=== PATIENT | male | born 1955 | race Caucasian/White ===

== ENCOUNTER 2017-01-29 12:44 | Emergency (ER) | payer BC, OTHER ==
[~2017-01-29] VITALS: Ht 180.3 cm; Wt 85.3 kg
[2017-01-29] MEDS ORDERED: ASPI325T28 PO (12:58)
[2017-01-29] MEDS ORDERED: FLEC50TA PO (12:58)
[2017-01-29] MEDS ORDERED: GLUC500C5 PO (12:58)
[2017-01-29] MEDS ORDERED: TETRACAINE 0.5% OPHTH SOLN 4ML OD ONE (13:30)
[2017-01-29] MEDS ORDERED: PHENYLEPHRINE 2.5% OPHTH SOL 2ML OU ONE (13:45)
[2017-01-29] MEDS ORDERED: TROPICAMIDE 0.5% OPHTH SOLN 15 ML OU ONE (13:45)
[2017-01-29 15:17] VITALS: BP 125/74
--- NOTE | 2017-02-01 00:40 | ER ---
DATE: 01/29/2017 CHIEF COMPLAINT: Floaters. HISTORY OF PRESENT ILLNESS: This is a 61-year-old male with a 1-day history of floaters in the right eye. Patient notes that they started yesterday evening with dark spots and gradually progressed into a cobweb-type configuration. There are no associated flashes of light or change in visual acuity. He denies any prior trauma. Patient was with his in the examination room at the time of taking history and physical exam. PAST MEDICAL HISTORY: intermittent atrial fibrillation. PAST OCULAR HISTORY: Spectacle lens use. No ocular drops. No prior ocular surgery. ALLERGIES: None. REVIEW OF SYSTEMS: Noncontributory. Visual acuity uncorrected 20/25 both eyes (OU). Visual acuity corrected is 20/25 right eye (OD) and 20/25 left eye (OS). Intraocular pressure is soft to palpation bilaterally. Extraocular muscles are full bilaterally. Confrontation visual levin are full OU. Slit lamp examination: Lids, lashes and adnexa are within normal limits. There is no ptosis or lid retraction. Conjunctivae and sclerae are white and quiet OU. Lens is 2+. Nuclear sclerosis OU. Cornea is clear OU and iris is flat. There is no rubeosis OU. Dilated fundus examination revealed a cup-to-disc ratio of 0.1. Disc margins were sharp, pink, and flat OU. Macula was flat OU. Vessels were within normal limits OU. Vitreous examination of the right eye revealed a vitreous hemorrhage to the right eye with no associated tears, breaks, or holes. Scleral depression was not performed. OS was within normal limits. ASSESSMENT AND PLAN: 1. Vitreous degeneration of the right eye without associated tear, break, or hole. Recommend followup with [facility] on Monday in [place] for repeat dilated examination and scleral depression to rule out presence of retinal hole or tear. Patient was instructed to call my office or return to the emergency room as soon as possible if there were any changes in symptoms, such as increased floaters, flashes of light, or a dark curtain that entered his vision. 2. Nuclear sclerosis bilaterally. - Monitor 3. Refractive error. - Spectacle correction. MTDD
== END 2017-01-29 15:21 | disposition home or self-care (01) ==
LOC: M ED 14:16
DX: H43.89 Other disorders of vitreous body (principal); H53.8 Other visual disturbances; I48.91 Unspecified atrial fibrillation; Z79.82 Long term (current) use of aspirin; Z79.899 Other long term (current) drug therapy

== ENCOUNTER → 2017-08-04 | Outpatient (CLI) | payer BC, OTHER ==
[~2017-08-04] MED LIST: ASPI325T28 PO; FLEC50TA PO; GLUC500C5 PO
--- NOTE | 2017-08-04 14:47 | REP ---
CT ABDOMEN AND PELVIS WITHOUT IV OR ORAL CONTRAST: HISTORY: Low back pain. Question intra-abdominal pathology. No comparison study. CT FINDINGS: Preliminary digital flight nurse radiograph demonstrates moderate stool in the colon. No small bowel dilation is seen. The patient is status post right hip arthroplasty. The lung bases are clear. The liver and the spleen are normal in size and homogeneous in texture on pre- and postcontrast images. No adrenal lesion is seen. The gallbladder is small and contracted but otherwise unremarkable. No pancreatic abnormalities observed. There is a low-density area consistent with a cyst in the posterior cortex of the left kidney measuring 1.8 cm in diameter. No hydronephrosis or calculus is seen. Normal caliber aorta is noted. Small and large intestinal bowel loops are unremarkable on CT images. The appendix is retrocecal and high in position near the lower pole of the right kidney. No abdominal wall defect is seen. No evidence of free air or intraperitoneal fluid collection. No bladder calculus or ureteral calculus is observed. IMPRESSION: 1.8 cm cyst left kidney, moderate colonic stool. Otherwise negative. Signed by Carlos Quinones MD 08/04/2017 04:00 P
== END ==
LOC: M RAD 14:16
PROVIDERS: ATTEND Orthopaedic Surgery Orthopaedic Surgery of the Spine
DX: N28.1 Cyst of kidney, acquired (principal)

== ENCOUNTER → 2017-08-24 | Outpatient (CLI) | payer OTHER | LOC: M PAIN 13:00 | DX: G89.29 Other chronic pain (principal); M54.5 Low back pain; M51.16 Intervertebral disc disorders with radiculopathy, lumbar region; M51.17 Intervertebral disc disorders with radiculopathy, lumbosacral region; I48.91 Unspecified atrial fibrillation; Z79.82 Long term (current) use of aspirin; Z79.899 Other long term (current) drug therapy | CPT/HCPCS: G0463 ==

== ENCOUNTER → 2017-09-14 | Outpatient (CLI) | payer OTHER | LOC: M PAIN 11:00 | DX: G89.29 Other chronic pain (principal); M54.5 Low back pain; M51.16 Intervertebral disc disorders with radiculopathy, lumbar region; M51.17 Intervertebral disc disorders with radiculopathy, lumbosacral region; Z79.82 Long term (current) use of aspirin; Z79.899 Other long term (current) drug therapy; Z86.79 Personal history of other diseases of the circulatory system | CPT/HCPCS: G0463 ==

== ENCOUNTER 2019-01-29 09:29 | Day surgery (SDC) | payer BC, OTHER ==
[~2019-01-29] VITALS: Ht 180.3 cm; Wt 82.1 kg
[~2019-01-29 09:29] MED LIST changes: +ASPI-222 PO; -ASPI325T28 PO; +FLEC50HA PO; -FLEC50TA PO; +GLUC1CAP10 PO; +NS 1,000 ML IV ONE
[2019-01-29] MEDS ORDERED: PROPOFOL 200 MG/20 ML VIAL As Ordered ONE (11:58)
[2019-01-29] MEDS ORDERED: LIDOCAINE 2% INJ 100 MG/5 ML SDV (FOR ANES.) As Ordered ONE (12:03)
--- NOTE | 2019-01-29 12:38 | ROOR ---
Patient Name: Jose Juan Ham Procedure Date: 01/29/2019 12:12 PM Date of : 1955 Age: 63 Room: [facility] Gender: Male Note Status: Finalized Procedure: Colonoscopy Indications: High risk colon cancer surveillance: Personal history of colonic polyps, Last colonoscopy: 2007 Providers: Henry Armando MD Referring MD: 1. No Referring Physician 1. No Referring Physician, Admin. Requesting Provider: Medicines: Monitored Anesthesia Care Complications: No immediate complications. Procedure: Pre-Anesthesia Assessment: - Prior to the procedure, a History and Physical was performed, and patient medications and allergies were reviewed. The patient is competent. The risks and benefits of the procedure and the sedation options and risks were discussed with the patient. All questions were answered and informed consent was obtained. Patient identification and proposed procedure were verified by the physician, the nurse and the anesthesiologist in the procedure room. Mental Status Examination: alert and oriented. CV Examination: regular rate and rhythm. Prophylactic Antibiotics: The patient does not require prophylactic antibiotics. Prior Anticoagulants: The patient has taken no previous anticoagulant or antiplatelet agents. ASA Grade Assessment: II - A patient with mild systemic disease. After reviewing the risks and benefits, the patient was deemed in satisfactory condition to undergo the procedure. The anesthesia plan was to use monitored anesthesia care (MAC). Immediately prior to administration of medications, the patient was re-assessed for adequacy to receive sedatives. The heart rate, respiratory rate, oxygen saturations, blood pressure, adequacy of pulmonary ventilation, and response to care were monitored throughout the procedure. The physical status of the patient was re-assessed after the procedure. The Colonoscope was introduced through the anus and advanced to the cecum, identified by appendiceal orifice and ileocecal valve. The colonoscopy was performed without difficulty. The patient tolerated the procedure well. The quality of the bowel preparation was good. Findings: The perianal and digital rectal examinations were normal. Multiple medium-mouthed diverticula were found in the sigmoid colon and descending colon. The exam was otherwise without abnormality. Impression: - Diverticulosis in the sigmoid colon and in the descending colon. - The examination was otherwise normal. - No specimens collected. Recommendation: - Discharge patient to home. - Resume previous diet. - Continue present medications. - Repeat colonoscopy in 10 years for screening purposes. Henry Armando MD Henry Armando MD 01/29/2019 12:38:07 PM Electronically signed by Henry Armando MD Number of Addenda: 0 Note Initiated On: 01/29/2019 12:12 PM Estimated Blood Loss: Estimated blood loss: none.
[2019-01-29 13:06] VITALS: BP 143/89
== END 2019-01-29 13:16 | disposition home or self-care (01) ==
LOC: M OPP 09:29
PROVIDERS: ATTEND Surgery
DX: K57.30 Diverticulosis of large intestine without perforation or abscess without bleeding (principal); Z86.010 Personal history of colon polyps

== ENCOUNTER → 2021-05-11 | Outpatient (CLI) | payer BC, OTHER ==
[~2021-05-11] MED LIST changes: -ASPI-222 PO; +ASPI-527 PO; -NS 1,000 ML IV ONE
[2021-05-11 13:20] LABS: HEMATOCRIT 42.6 % (42.0-52.0); MEAN CORPUSCULAR HEMOGLOBIN 32.3 pg (27.0-33.0); MEAN CORPUSCULAR HGB CONC 32.9 g/dl (32.0-36.5); MEAN CORPUSCULAR VOLUME 98.4 fl (80.0-96.0); PLATELET COUNT, AUTOMATED 184 10^3/uL (150-450); RED BLOOD COUNT 4.33 10^6/uL (4.30-6.10); WHITE BLOOD COUNT 5.2 10^3/uL (4.0-10.0)
[2021-05-11 14:14] LABS: ALBUMIN 3.9 GM/DL (3.2-5.2); ALT/SGPT 13 U/L (12-78); BILIRUBIN,TOTAL 0.6 MG/DL (0.2-1.0); BLOOD UREA NITROGEN 15 MG/DL (7-18); CALCIUM LEVEL 8.6 MG/DL (8.8-10.2); CARBON DIOXIDE LEVEL 31 MEQ/L (21-32); CHLORIDE LEVEL 107 MEQ/L (98-107); CHOLESTEROL LEVEL 164 MG/DL (<200); CHOLESTEROL RISK RATIO 2.603 (<5); CREATININE FOR GFR 0.82 MG/DL (0.70-1.30); GLOMERULAR FILTRATION RATE > 60.0 (>49); GLUCOSE, FASTING 91 MG/DL (70-100); HDL CHOLESTEROL 63 MG/DL (>40); LDL CHOLESTEROL 92 MG/DL (<100); NON-HDL-C 101 MG/DL; POTASSIUM SERUM 4.8 MEQ/L (3.5-5.1); PROSTATIC SPECIFIC AG MONITOR 0.46 NG/ML (< 4.00); SODIUM LEVEL 140 MEQ/L (136-145); THYROID STIMULATING HORMONE 0.779 uIU/ML (0.358-3.740); TOTAL PROTEIN 7.1 GM/DL (6.4-8.2); TRIGLYCERIDES LEVEL 46 MG/DL (<150)
== END ==
LOC: M PLALAB 11:13
PROVIDERS: ATTEND Nurse Practitioner Family
DX: I48.0 Paroxysmal atrial fibrillation (principal)

== ENCOUNTER → 2024-12-10 | Outpatient (CLI) | payer MEDICARE, BC, OTHER ==
[2024-12-10 16:26] LABS: CHOLESTEROL RISK RATIO 2.85 (<5); HDL CHOLESTEROL 61.6 MG/DL (>40); LDL CHOLESTEROL 105.2 MG/DL (<100); NON-HDL-C 114.4 MG/DL; PSA SCREENING 0.36 NG/ML (< 4.00)
[2024-12-10 16:29] LABS: TOTAL 25(OH) VITAMIN D 23.7 NG/ML (20.0-100.0)
== END ==
LOC: M PLALAB 12:33
PROVIDERS: ATTEND Family Medicine
DX: Z00.00 Encounter for general adult medical examination without abnormal findings (principal); E78.00 Pure hypercholesterolemia, unspecified; Z12.5 Encounter for screening for malignant neoplasm of prostate
CPT/HCPCS: 36415; 80061; 82306; G0103